=== PATIENT | female | born 1965 | race Caucasian/White ===

== ENCOUNTER → 2017-03-01 | Outpatient (CLI) | payer BC ==
[~2017-03-01] MED LIST: NO MEDICATIONS
[2017-03-01 12:33] LABS: HEMATOCRIT 41.7 % (35.0-45.0); HEMOGLOBIN 13.7 gm/dL (12.0-16.0); MEAN CELL VOLUME 88.9 FL (83-96); MEAN CORPUSCULAR HEMOGLOBIN 29.2 PG (28-34); MEAN CORPUSCULAR HGB CONC 32.8 g/dL (30-36); MEAN PLATELET VOLUME 7.9 FL (6.5-11.5); RED BLOOD COUNT 4.69 X10e (3.90-5.30); RED CELL DISTRIBUTION WIDTH 13.4 % (11.0-15.5); WHITE BLOOD COUNT 5.4 X10e3 (4.0-10.5)
[2017-03-01 14:15] LABS: BUN/CREATININE RATIO 23.33; CALCIUM SERUM 9.1 mg/dL (8.4-10.2); CREATININE SERUM 0.6 mg/dL (0.6-1.4); GLOM FILT RATE Estimated 106.3 mL/min (>60); POTASSIUM 3.6 mmol/L (3.5-5.1)
== END | disposition home or self-care (01) ==
LOC: CAMB 11:58
PROVIDERS: Specialist
DX: Z01.812 Encounter for preprocedural laboratory examination (principal); R22.2 Localized swelling, mass and lump, trunk
CPT/HCPCS: 36415; 80048; 85027

== ENCOUNTER → 2017-03-07 | Day surgery (SDC) | payer BC ==
--- NOTE | ~2017-03-07 | OR ---
Unit #: [id number] #: [id number] Patient: CATA HERNANDEZ [id number] [facility] [address] [place] [id number] MR#: [id number] NAME: CATA HERNANDEZ ROOM: Date of Procedure: 03/07/2017 Admission Date: 03/07/2017 Surgeon: Mert Blanton M.D. : 1965 Attending Physician: Mert Blanton M.D. Primary Care Physician: Sonam Cleary M.D. OPERATIVE REPORT PREOPERATIVE DIAGNOSIS Enlarging soft tissue mass, right hip. POSTOPERATIVE DIAGNOSIS 4 cm sebaceous cyst. PROCEDURE PERFORMED Excisional biopsy of 4 cm sebaceous cyst. ANESTHESIA General endotracheal anesthesia. ESTIMATED BLOOD LOSS Less than 20 mL. INDICATIONS FOR PROCEDURE A 51-year-old female came in the office complaining of an enlarging soft tissue mass in the right hip. She said it had been present for a significant amount of time, but it had recently started to enlarge. On examination, it was a superficial subcutaneous mass, measuring 4 cm. DESCRIPTION OF PROCEDURE The patient was admitted to [facility], positively identified, and transported to the operating room, and after induction of general endotracheal anesthesia, she was placed in a lateral position with an axillary roll, appropriate padding, and all pressure points. Once she was secured, she was prepped and draped in usual sterile fashion. In the skin line, a vertical incision was made over the mass. I dissected down and a sebaceous cyst from the surrounding soft tissue circumferentially and removed it en bloc with a cuff of normal tissue. There was no spillage of sebum into the wound. I irrigated with saline and Betadine, ensured hemostasis, closed the soft tissue with 2-0 Vicryl interrupted suture and the skin with 3-0 nylon vertical mattress interrupted suture. Telfa and Tegaderm placed as dressings. Sponges and needle counts were correct x3. The patient tolerated the procedure well and was transported to recovery in stable condition. There was no family at the end of the case to discuss the findings with. Dictated by... Mert Blanton M.D. Unit #: [id number] #: [id number] Patient: CATA HERNANDEZ BÁRBARA/karan TD: 03/07/2017 23:51 JOB #: [id number] OPERATIVE REPORT Page 1 of 1 X Mert Blanton MD PROCEDURE OPERATIVE NOTE
== END | disposition home or self-care (01) ==
LOC: CSUR 06:22
DX: L72.3 Sebaceous cyst (principal)
CPT/HCPCS: 84703; 88304; J0690; J1100; J1885; J2250; J2270; J2765